=== PATIENT | male | born 2000 | race Caucasian/White ===

== ENCOUNTER 2021-01-20 18:52 | Emergency (ER) | payer BC ==
[2021-01-20] MEDS ORDERED: HYDROCODONE/APAP 10/325 TAB ONE (22:19)
--- NOTE | 2021-01-20 22:52 | ER ---
Nurse's Notes [facility] Name: Doug Garcia Age: 20 yrs Sex: Male : 2000 Arrival Date: 01/20/2021 Time: 18:55 Bed 14 Private MD: Diagnosis: Cerumen Impaction Presentation: 01/20 19:11 Chief complaint: Patient states: Cleaning out R ear at 2 am. Accidentally pushed Q-tip ll1 into ear. Pain since. No bloody drainage. Coronavirus screen: Client denies travel out of the [place] in the last 14 days. At this time, the client does not indicate any symptoms associated with coronavirus-19. Ebola Screen: Patient denies travel to an Ebola-affected area in the 21 days before illness onset. Initial Sepsis Screen: Does the patient meet any 2 criteria? No. Patient's initial sepsis screen is negative. Does the patient have a suspected source of infection? Yes: Other: ear. Risk Assessment: Do you want to hurt yourself or someone else? Patient reports no desire to harm self or others. Onset of symptoms was January 20, 2021. 19:11 Method Of Arrival: Ambulatory ll1 19:11 Acuity: JEFF 4 ll1 Historical: - Allergies: 19:10 shrimp/lobster; ll1 - PMHx: 19:10 Asthma; ll1 - PSHx: 19:10 None; ll1 - Immunization history:: Adult Immunizations up to date, Last tetanus immunization: < 10 years ago Flu vaccine is not up to date. - Social history:: Smoking status: Reported history of juuling and/or vaping. Patient denies any tobacco usage or history of. Screenin:26 Abuse screen: Denies threats or abuse. Nutritional screening: No deficits noted. em Tuberculosis screening: No symptoms or risk factors identified. Fall Risk None identified. Assessment: 20:26 General: Appears in no apparent distress. uncomfortable, Behavior is calm, cooperative, em appropriate for age, Denies fever. Pain: Complains of pain in right ear Pain currently is 7 out of 10 on a pain scale. Neuro: Level of Consciousness is awake, alert, obeys commands, Oriented to person, place, time, situation, Appropriate for age. Cardiovascular: Capillary refill < 3 seconds Patient's skin is warm and dry. Respiratory: Airway is patent Respiratory effort is even, unlabored, Respiratory pattern is regular, symmetrical. Derm: Skin is intact, is healthy with good turgor, Skin is pink, warm \T\ dry. Musculoskeletal: Capillary refill < 3 seconds, Range of motion: intact in all extremities. 23:02 Reassessment: Patient appears in no apparent distress at this time. Patient and/or jb4 family updated on plan of care and expected duration. Pain level reassessed. Patient is alert, oriented x 3, equal unlabored respirations, skin warm/dry/pink. Vital Signs: 19:11 BP 129 / 72; Pulse 63; Resp 16; Temp 97.4; Pulse Ox 97% ; Weight 81.65 kg; Height 6 ft. ll1 1 in. (185.42 cm); Pain 7/10; 19:11 Body Mass Index 23.75 (81.65 kg, 185.42 cm) ll1 ED Course: 18:55 Patient arrived in ED. mr 19:14 Triage completed. ll1 19:14 Arm band placed on. 1 20:12 Ivan García PA is PHCP. [facility] 20:12 Sathish Langford MD is Attending Physician. [facility] 20:26 Jesus Pillai, RN is Primary Nurse. em 20:26 Patient has correct armband on for positive identification. Bed in low position. Call em light in reach. Adult w/ patient. Pulse ox on. NIBP on. 20:26 No provider procedures requiring assistance completed. Patient did not have IV access em during this emergency room visit. Administered Medications: 21:58 Drug: [place] (HYDROcodone-acetaminophen) 10 mg-325 mg 1 tabs Route: PO; em 23:01 Follow up: Response: No adverse reaction; Pain is decreased; RASS: Alert and Calm (0) banner Outcome: 22:52 Discharge ordered by . [facility] 23:02 Discharged to home ambulatory, with family. banner 23:02 Condition: stable 23:02 Discharge instructions given to patient, Instructed on discharge instructions, follow up and referral plans. Demonstrated understanding of instructions, follow-up care. 23:02 Patient left the ED. banner Signatures: Ivan García PA PA [facility] RosasAlethea mr Jesus Pillai, ESTEBAN RN Ky Wall RN RN banner Kiki Lamar RN RN ll1 Corrections: (The following items were deleted from the chart) : Allergies: shrimp/lobster; ll1 ll1 : Allergies: No Known Allergies; ll1 ll1
--- NOTE | 2021-01-20 22:53 | EDPHYS ---
Physician Documentation [facility] Name: Doug Garcia Age: 20 yrs Sex: Male : 2000 Arrival Date: 01/20/2021 Time: 18:55 Bed 14 Private MD: ED Physician Sathish Langford HPI: 01/20 21:53 This 20 yrs old Male presents to ER via Ambulatory with complaints of Ear jmm Pain. 21:53 The patient presents with pain. Onset: The symptoms/episode began/occurred 1 day(s) jmm ago. Modifying factors: The symptoms are alleviated by nothing, the symptoms are aggravated by touching. This is a 20 year old male with a history of asthma that presents to the ED with complaints of right ear pain beginning approx 1 day ago. Patient states he used a qtip to clean his ears and pushed wax further into the canal. . Historical: - Allergies: 19:10 shrimp/lobster; ll1 - PMHx: 19:10 Asthma; ll1 - PSHx: 19:10 None; ll1 - Immunization history:: Adult Immunizations up to date, Last tetanus immunization: < 10 years ago Flu vaccine is not up to date. - Social history:: Smoking status: Reported history of juuling and/or vaping. Patient denies any tobacco usage or history of. ROS: 21:53 Constitutional: Negative for fever, chills, and weight loss. jmm 21:53 ENT: Positive for ear pain. 21:53 All other systems are negative. Exam: 21:53 Constitutional: This is a well developed, well nourished patient who is awake, alert, jmm and in no acute distress. Head/Face: atraumatic. Eyes: EOMI, no conjunctival erythema appreciated 21:53 Neck: Trachea midline, Supple Chest/axilla: Normal chest wall appearance and motion. Cardiovascular: Regular rate and rhythm. No edema appreciated Respiratory: Normal respirations, no respiratory distress appreciated Abdomen/GI: Non distended, soft Back: Normal ROM Skin: General appearance color normal MS/ Extremity: Moves all extremities, no obvious deformities appreciated, no edema noted to the lower extremities Neuro: Awake and alert, normal gait Psych: Behavior is normal, Mood is normal, Patient is cooperative and pleasant 21:53 ENT: TM's: not visable, because of cerumen. Vital Signs: 19:11 BP 129 / 72; Pulse 63; Resp 16; Temp 97.4; Pulse Ox 97% ; Weight 81.65 kg; Height 6 ft. ll1 1 in. (185.42 cm); Pain 7/10; 19:11 Body Mass Index 23.75 (81.65 kg, 185.42 cm) ll1 MDM: 21:52 Patient medically screened. [facility] 22:50 Data reviewed: vital signs, nurses notes. Counseling: I had a detailed discussion with abner the patient and/or guardian regarding: the historical points, exam findings, and any diagnostic results supporting the discharge/admit diagnosis, the need for outpatient follow up, to return to the emergency department if symptoms worsen or persist or if there are any questions or concerns that arise at home. ED course: Right ear was irrigated and removed a significant amount of cerumen. Patient states having much relief. Advised to follow up with pcp and otherwise given strict return precautions. Patient understood and agrees with the plan of care. . 01/20 21:53 Order name: [facility] [place]. Order: irrigate the right ear; Complete Time: 22:47 [facility] Administered Medications: 21:58 Drug: [place] (HYDROcodone-acetaminophen) 10 mg-325 mg 1 tabs Route: PO; em 23:01 Follow up: Response: No adverse reaction; Pain is decreased; RASS: Alert and Calm (0) jb4 Disposition: 23:07 Co-signature as Attending Physician, Sathish Langford MD. [facility] Disposition Summary: 01/20/21 22:52 Discharge Ordered Location: Home [facility] Condition: Stable [facility] Diagnosis - Cerumen Impaction [facility] Followup: [facility] - With: Private Physician - When: 2 - 3 days - Reason: Recheck today's complaints, Continuance of care, Re-evaluation by your physician Forms: - Medication Reconciliation Form [facility] - Thank You Letter [facility] - Antibiotic Education [facility] - Prescription Opioid Use [facility] Signatures: Sathish Langford MD MD pk Ivan García PA PA [facility] Jesus Pillai, RN RN em Kiki Lamar RN RN ll1 Ky Wall RN jb4 Corrections: (The following items were deleted from the chart) 19:11 19:10 Allergies: shrimp/lobster; ll1 ll1 19:11 19:10 Allergies: No Known Allergies; ll1 ll1
[2021-01-20 23:08] VITALS: BP 129/72; TEMP 97.4; O2SAT 97
== END 2021-01-20 23:02 | disposition home or self-care (01) ==
LOC: ER 18:52
DX: H61.21 Impacted cerumen, right ear (principal); Z91.013 Allergy to seafood
CPT/HCPCS: 99283

== ENCOUNTER 2022-03-12 18:14 | Emergency (ER) | payer BC ==
--- NOTE | 2022-03-12 20:35 | EDPHYS ---
Physician Documentation [facility] Name: Doug Garcia Age: 21 yrs Sex: Male : 2000 Arrival Date: 03/12/2022 Time: 18:16 Bed Waiting Private MD: ED Physician Wiley Angel HPI: 03/12 20:22 This 21 yrs old Male presents to ER via Ambulatory with complaints of fever, bodyaches. rn 20:22 The patient reports fever, not measured (subjective). Onset: The symptoms/episode rn began/occurred this morning. Modifying factors: there are no obvious modifying factors. Associated signs and symptoms: Pertinent positives: chills, Pertinent negatives: abdominal pain, altered mental status, chest pain, cough, diarrhea, hemoptysis, runny nose, skin rash, shortness of breath, sore throat, swelling, vomiting. Severity of symptoms: At their worst the symptoms were moderate in the emergency department the symptoms have improved. The patient has not experienced similar symptoms in the past. The patient has not recently seen a physician. Historical: - Allergies: 19:27 shrimp/lobster; iw - PMHx: 19:27 Asthma; iw - Family history:: not pertinent. - Hospitalizations: : No recent hospitalization is reported. ROS: 20:22 Constitutional: + fever and chills Eyes: Negative for injury, pain, redness, and architecture internship, ENT: Negative for injury, pain, and discharge, Cardiovascular: Negative for chest pain, palpitations, and edema, Respiratory: Negative for shortness of breath, cough, wheezing, and pleuritic chest pain, Abdomen/GI: Negative for abdominal pain, nausea, vomiting, diarrhea, and constipation, Back: Negative for injury and pain, MS/Extremity: Negative for injury and deformity, Skin: Negative for injury, rash, and discoloration, Neuro: Negative for weakness, numbness, tingling, and seizure. Exam: 20:23 Constitutional: This is a well developed, well nourished patient who is awake, alert, rn and in no acute distress. Ambulatory to room without difficulty or assistance. Head/Face: Normocephalic, atraumatic. Eyes: Pupils equal round and reactive to light, extra-ocular motions intact. Lids and lashes normal. Conjunctiva and sclera are non-icteric and not injected. Cornea within normal limits. Periorbital areas with no swelling, redness, or edema. ENT: dry MM, no stridor or swelling Neck: Trachea midline, no thyromegaly or masses palpated, and no cervical lymphadenopathy. Supple, full range of motion without nuchal rigidity, or vertebral point tenderness. No Meningismus. Cardiovascular: Tachycardic, regular. No pulse deficits. Respiratory: No increased work of breathing, no retractions or nasal flaring. Abdomen/GI: soft, non-tender Skin: Warm, dry, no rash MS/ Extremity: Pulses equal, no cyanosis. Neuro: Awake and alert, GCS 15, oriented to person, place, time, and situation. Cranial nerves II-XII grossly intact. Motor strength 5/5 in all extremities. Sensory grossly intact. Cerebellar exam normal. Normal gait. Vital Signs: 19:26 BP 122 / 75; Pulse 105; Resp 18; Temp 99.1; Pulse Ox 97% on R/A; iw MDM: 19:22 Patient medically screened. rn 20:33 Differential diagnosis: viral Infection, bacterial infection, URI. Data reviewed: vital rn signs, nurses notes, lab test result(s), and as a result, I will discharge patient. Counseling: I had a detailed discussion with the patient and/or guardian regarding: the historical points, exam findings, and any diagnostic results supporting the discharge/admit diagnosis, lab results, the need for outpatient follow up, to return to the emergency department if symptoms worsen or persist or if there are any questions or concerns that arise at home. Special discussion: I discussed with the patient/guardian in detail that at this point there is no indication for admission to the hospital. It is understood, however, that if the symptoms persist or worsen the patient needs to return immediately for re-evaluation. 03/12 18:54 Order name: Influenza Screen (a \\T\\ B); Complete Time: 20:33 ms3 03/12 18:54 Order name: SARS-COV-2 RT PCR (Document "Date of Onset" if Symptomatic); Complete Time: ms3 20:33 03/12 19:28 Order name: Strep; Complete Time: 20:33 iw 03/12 20:00 Order name: Throat Culture EDMS Administered Medications: No medications were administered Disposition Summary: 03/12/22 20:34 Discharge Ordered Location: Home rn Problem: new rn Symptoms: have improved rn Condition: Stable rn Diagnosis - SARS-associated coronavirus as the cause of diseases classified elsewhere rn - Fever, unspecified rn Followup: rn - With: Private Physician - When: As needed - Reason: Recheck today's complaints, Re-evaluation by your physician Discharge Instructions: - Discharge Summary Sheet rn - Fever, Adult rn - COVID-19 rn - 10 Things You Can Do to Manage Your COVID-19 Symptoms at Home - [facility] rn - Viral Illness, Adult rn - Prevent the Spread of COVID-19 if You Are Sick - [facility] rn Forms: - Medication Reconciliation Form rn - Thank You Letter rn - Antibiotic government guard - Prescription Opioid Use rn Signatures: Dispatcher [employer] Le Garvin RN RN Wiley Haynes MD MD rn
--- NOTE | 2022-03-12 20:35 | ER ---
Nurse's Notes [facility] Name: Doug Garcia Age: 21 yrs Sex: Male : 2000 Arrival Date: 03/12/2022 Time: 18:16 Bed Waiting Private MD: Diagnosis: SARS-associated coronavirus as the cause of diseases classified elsewhere;Fever, unspecified Presentation: 03/12 19:26 Chief complaint: Patient states: body aches, headache, no cough, no n/v/d. Coronavirus iw screen: Client presents with at least one sign or symptom that may indicate coronavirus-19. Ebola Screen: Patient negative for fever greater than or equal to 101.5 degrees Fahrenheit, and additional compatible Ebola Virus Disease symptoms Patient denies exposure to infectious person. Patient denies travel to an Ebola-affected area in the 21 days before illness onset. No symptoms or risks identified at this time. Initial Sepsis Screen: Does the patient meet any 2 criteria? No. Patient's initial sepsis screen is negative. Does the patient have a suspected source of infection? No. Patient's initial sepsis screen is negative. Risk Assessment: Do you want to hurt yourself or someone else? Patient reports no desire to harm self or others. Onset of symptoms was March 12, 2022. 19:26 Method Of Arrival: Ambulatory 19:26 Acuity: JEFF 4 iw Triage Assessment: 20:57 General: Appears in no apparent distress. uncomfortable, Behavior is calm, cooperative, vc1 appropriate for age. Pain: Complains of pain in Generalized. Neuro: Level of Consciousness is awake, alert, obeys commands. Cardiovascular: No deficits noted. Respiratory: Airway is patent Respiratory effort is even, unlabored, Respiratory pattern is regular, symmetrical. Historical: - Allergies: 19:27 shrimp/lobster; iw - PMHx: 19:27 Asthma; iw - Family history:: not pertinent. - Hospitalizations: : No recent hospitalization is reported. Screenin:57 Abuse screen: Denies threats or abuse. Nutritional screening: No deficits noted. vc1 Tuberculosis screening: No symptoms or risk factors identified. Fall Risk None identified. Vital Signs: 19:26 BP 122 / 75; Pulse 105; Resp 18; Temp 99.1; Pulse Ox 97% on R/A; iw ED Course: 18:16 Patient arrived in ED. am2 19:22 Wiley Angel MD is Attending Physician. rn 19:27 Triage completed. iw 19:27 Arm band placed on. iw 19:41 Influenza Screen (a \\T\\ B) Sent. iw 19:41 SARS-COV-2 RT PCR (Document "Date of Onset" if Symptomatic) Sent. iw 19:41 Strep Sent. iw 20:59 No provider procedures requiring assistance completed. Patient did not have IV access vc1 during this emergency room visit. Administered Medications: No medications were administered Medication: 20:59 VIS not applicable for this client. vc1 Outcome: 20:34 Discharge ordered by . rn 20:59 Discharged to home ambulatory. vc1 20:59 Condition: good 20:59 Discharge instructions given to patient, Instructed on discharge instructions, follow up and referral plans. Demonstrated understanding of instructions, follow-up care. 20:59 Patient left the ED. vc1 Signatures: Le Qureshi RN ESTEBAN Wiley Angel MD MD rn Moreno, Amanda am2 Dian Sawyer RN RN vc1
[2022-03-12 23:42] VITALS: BP 122/75; TEMP 99.1; O2SAT 97
== END 2022-03-12 20:59 | disposition home or self-care (01) ==
LOC: ER 18:14
DX: U07.1 COVID-19 (principal); Z91.013 Allergy to seafood
CPT/HCPCS: 87070; 87081; 87804 ×2; 99283; U0003